=== PATIENT | male | born 2000 | race Caucasian/White ===

== ENCOUNTER 2021-05-06 15:43 | Emergency (ER) | payer SELFPAY ==
[~2021-05-06 15:43] MED LIST: AMOXIL250 MG/5 M PO
[2021-05-06] MEDS ORDERED: AMOXICILLIN875 MG PO (16:02)
== END 2021-05-06 16:07 | disposition home or self-care (01) ==
LOC: ED 15:43
DX: K04.7 Periapical abscess without sinus (principal)

== ENCOUNTER 2022-06-08 21:54 | Emergency (ER) | payer SELFPAY ==
[~2022-06-08 21:54] MED LIST changes: +AMOXICILLIN875 MG PO
[2022-06-08] MEDS ORDERED: CLEOCIN HCL300 MG PO (22:24)
== END 2022-06-08 22:36 | disposition home or self-care (01) ==
LOC: ED 21:54
DX: K08.89 Other specified disorders of teeth and supporting structures (principal); Z90.89 Acquired absence of other organs

== ENCOUNTER 2023-04-15 13:50 | Emergency (ER) | payer SELFPAY ==
[~2023-04-15] VITALS: Ht 182.8 cm; Wt 65.8 kg
[~2023-04-15 13:50] MED LIST changes: +CLEOCIN HCL300 MG PO
[2023-04-15] MEDS ORDERED: PENICILLIN VK500 MG PO (14:27)
== END 2023-04-15 14:45 | disposition home or self-care (01) ==
LOC: ED 13:50
DX: K02.9 Dental caries, unspecified (principal); J45.909 Unspecified asthma, uncomplicated; F90.9 Attention-deficit hyperactivity disorder, unspecified type; Z98.890 Other specified postprocedural states; Z90.89 Acquired absence of other organs

== ENCOUNTER 2024-01-26 14:07 | Emergency (ER) | payer SELFPAY ==
[~2024-01-26] VITALS: Ht 182.8 cm; Wt 70.3 kg
[~2024-01-26 14:07] MED LIST changes: +PENICILLIN VK500 MG PO
[2024-01-26] MEDS ORDERED: NAPROSYN500 MG PO (16:17)
[2024-01-26] MEDS ORDERED: NAPROXEN 250 MG TAB PO ONE (16:20)
== END 2024-01-26 16:31 | disposition home or self-care (01) ==
LOC: ED 14:07
DX: S00.83XA Contusion of other part of head, initial encounter (principal); J45.909 Unspecified asthma, uncomplicated; F90.9 Attention-deficit hyperactivity disorder, unspecified type; Z90.89 Acquired absence of other organs; Z98.890 Other specified postprocedural states; W01.198A Fall on same level from slipping, tripping and stumbling with subsequent striking against other object, initial encounter; Y93.89 Activity, other specified; Y92.89 Other specified places as the place of occurrence of the external cause; Y99.0 Civilian activity done for income or pay

== ENCOUNTER 2024-02-28 18:27 | Emergency (ER) | payer SELFPAY ==
[~2024-02-28] VITALS: Ht 180.3 cm; Wt 74.8 kg
[~2024-02-28 18:27] MED LIST changes: +NAPROSYN500 MG PO
[2024-02-28] MEDS ORDERED: PENICILLIN VK500 MG PO (18:43)
== END 2024-02-28 18:45 | disposition home or self-care (01) ==
LOC: ED 18:27
DX: K04.7 Periapical abscess without sinus (principal); F90.9 Attention-deficit hyperactivity disorder, unspecified type; J45.909 Unspecified asthma, uncomplicated; Z90.89 Acquired absence of other organs; Z98.890 Other specified postprocedural states

== ENCOUNTER 2024-06-12 10:46 | Emergency (ER) | payer MEDICAID ==
[~2024-06-12] VITALS: Ht 180.3 cm; Wt 65.8 kg
[2024-06-12] MEDS ORDERED: NAPROSYN500 MG PO (11:24)
[2024-06-12] MEDS ORDERED: Acetaminophen/Hydrocodone 5 MG/325 MG TABLET PO ONE (11:25)
== END 2024-06-12 11:36 | disposition home or self-care (01) ==
LOC: ED 10:46
DX: K04.7 Periapical abscess without sinus (principal); J45.909 Unspecified asthma, uncomplicated; F90.9 Attention-deficit hyperactivity disorder, unspecified type; Z90.89 Acquired absence of other organs; Z98.890 Other specified postprocedural states; Z87.891 Personal history of nicotine dependence

== ENCOUNTER 2024-10-08 18:17 | Emergency (ER) | payer MEDICAID ==
[~2024-10-08] VITALS: Ht 177.8 cm; Wt 61.2 kg
[2024-10-08] MEDS ORDERED: Amoxicillin/Clavulanate Pota 875 MG TAB PO ONE (18:35)
[2024-10-08] MEDS ORDERED: AMOX-CLAV 875-1 EACH PO (18:35)
== END 2024-10-08 18:37 | disposition home or self-care (01) ==
LOC: ED 18:17
DX: K04.7 Periapical abscess without sinus (principal); Z98.890 Other specified postprocedural states; Z96.22 Myringotomy tube(s) status